=== PATIENT | female | born 1945 | race Caucasian/White ===

== ENCOUNTER 2020-09-12 13:16 | Emergency (ER) | payer MEDICARE ==
[2020-09-12 15:13] LABS: RED BLOOD COUNT 4.1 M/UL (4.00-5.10); WHITE BLOOD COUNT 2.8 K/UL (4.5-11.0)
[2020-09-12] MEDS ORDERED: ZOFRAN ODT 4 MG4 MG PO (17:20)
[2020-09-12] MEDS ORDERED: VIBRAMYCIN 100100 MG PO (17:20)
[2020-09-12] MEDS ORDERED: PROAIR DIGIHAL90 MCG INH (17:20)
== END 2020-09-12 23:45 ==
LOC: ER1 13:16
PROVIDERS: Emergency Medicine
DX: J18.9 Pneumonia, unspecified organism (principal); I10 Essential (primary) hypertension; E11.9 Type 2 diabetes mellitus without complications
CPT/HCPCS: 71045; 80053; 83605; 85025; 87040; 99285

== ENCOUNTER → 2020-10-03 | Outpatient (CLI) | payer MEDICARE, BC ==
[~2020-10-03] MED LIST: PROAIR DIGIHAL90 MCG INH; VIBRAMYCIN 100100 MG PO; ZOFRAN ODT 4 MG4 MG PO
== END ==
LOC: ECHO 11:00
DX: I48.91 Unspecified atrial fibrillation (principal); R06.02 Shortness of breath; I08.3 Combined rheumatic disorders of mitral, aortic and tricuspid valves; I27.20 Pulmonary hypertension, unspecified
CPT/HCPCS: ECHO; 93306